=== PATIENT | female | born 1995 | race Caucasian/White ===

== ENCOUNTER 2020-02-02 19:09 | Outpatient (CLI) | payer BC, OTHER ==
[~2020-02-02] VITALS: Ht 162.6 cm; Wt 64.3 kg
[~2020-02-02 19:09] MED LIST: CELE10TA PO; No Home Meds; TRAZ-252 PO
[2020-02-02 19:35] VITALS: BP 108/66
[2020-02-02 20:49] LABS: HEMATOCRIT 30.5 % (36.0-47.0); HEMOGLOBIN 9.6 g/dl (12.0-15.5); MEAN CORPUSCULAR HEMOGLOBIN 26.4 pg (27.0-33.0); MEAN CORPUSCULAR HGB CONC 31.5 g/dl (32.0-36.5); PLATELET COUNT, AUTOMATED 250 10^3/uL (150-450); RED BLOOD COUNT 3.63 10^6/uL (4.00-5.40); WHITE BLOOD COUNT 12.8 10^3/uL (4.0-10.0)
[2020-02-02 21:20] LABS: INR 0.93; PARTIAL THROMBOPLASTIN TIME 28.3 SECONDS (24.2-38.5); PROTHROMBIN TIME 12.7 SECONDS (12.5-14.3)
[2020-02-02] MEDS ORDERED: PRENTAB9 PO (21:46)
[2020-02-02 22:56] VITALS: BP 86/43
--- NOTE | 2020-02-02 23:27 | IPNPDOC ---
Obstetrical Progress Note Date of Service Feb 02, 2020 Subjective 24yo at 35+4wks by LMP c/w 9wk U/S presenting to L&D for evaluation after falling on her hands/knees and stomach after being knocked down by dog at 1730. She reports she also drove up from [place] arriving in just minutes before her fall. She reports feeling her stomach tightening but not painful and she is unsure if they started before or after her fall. She denies having any pain at this time. Endorses good FM. Denies VB or LOF. 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 SVE /-2 Ext: no edema, no calf-tenderness Assessment and Plan Group B Streptococcus: Unknown Additional Comments A/P: 24yo at 35+4wks presenting to L&D after fall. Clinical picture reassuring not placental abruption with negative abruption labs, however, ctx pattern is regular and cannot rule out at this time vs PTL. -BTMZ 12mg IM q24h x2 doses for lung maturity -GBS collected on admission -IV fluids for hydration -Continuous FHR and toco monitoring -Admit to obs for 24hrs -Plan to recheck SVE to evaluate for cervical change as clinically indicated -Will not tocolyze at this time due to recent fall concerning for possible placental abruption. -Regular diet and PO hydration as tolerated -If patient proceeds in PTL, will need to start PCN for GBS ppx due to unk status Patient counseled on recommendation for observation on L&D at this time. She acknowledged understanding and desired to proceed. LEILANI VENEGAS. Feb 02, 2020 23:27
[2020-02-03] VITALS (14 sets, daily range): BP systolic 88–118; BP diastolic 47–58
--- NOTE | 2020-02-03 05:59 | IPNPDOC ---
Obstetrical Progress Note Date of Service Feb 03, 2020 Subjective Patient reports she has been getting some rest but notes she has been intermittently feeling her ctx's. Denies DFM, LOF, or VB. Objective Vital Signs Date Time Temp Pulse Resp B/P (MAP) Pulse Ox O2 Delivery O2 Flow Rate FiO2 02/03/20 00:15 77 18 95/52 (66) 02/02/20 22:56 98.1 Assessment Heart Rate (FHR): 130 Variability: Moderate Accelerations: Positive Decelerations: None Heart Rate Tracing: Category I Tocometer Contractions: Yes Frequency: every 1-3 min. Sterile Vaginal Examination Dilation: 1cm Effacement (%): 70% Station: -2 Cervical Consistency: Soft Cervical Position: Posterior Postion/Presentation: Cephalic presentation Assessment and Plan Status: Reassuring Group B Streptococcus: Unknown Additional Comments Patient has made no cervical change on my serial exams. Patient has intermittently felt ctx's, especially when she need to void, but reports they are minimally painful. FHRT cat I. Reviewed with patient negative abruption labs but counseled due to fall now 12 hours ago do not feel comfortable providing tocolysis at this time although possible etiology of her ctx's is PTL due to the stress of driving 17hours in 2 days from move. Will continue outpatient observation at this time on L&D Regular diet for breakfast Repeat BTMZ dose at 2100 tonight Repeat SVE prior to disposition home Continuous EFM at this time for close monitoring of status Continue to encourage hydration Bedrest with bathroom privileges GBS pending - if patient progresses in cervical dilation will need PCN ppx for GBS unk All questions answered. LEILANI VENEGAS DO Feb 03, 2020 05:59
[2020-02-03 17:13] LABS: HEMATOCRIT 26.1 % (36.0-47.0); HEMOGLOBIN 8.5 g/dl (12.0-15.5); MEAN CORPUSCULAR HEMOGLOBIN 27.5 pg (27.0-33.0); MEAN CORPUSCULAR HGB CONC 32.6 g/dl (32.0-36.5); MEAN CORPUSCULAR VOLUME 84.5 fl (80.0-96.0); PLATELET COUNT, AUTOMATED 237 10^3/uL (150-450); RED BLOOD COUNT 3.09 10^6/uL (4.00-5.40)
== END 2020-02-03 19:40 | disposition home or self-care (01) ==
LOC: M LDO 19:09
DX: O99.891 Other specified diseases and conditions complicating pregnancy (principal); W01.0XXA Fall on same level from slipping, tripping and stumbling without subsequent striking against object, initial encounter; Z3A.35 35 weeks gestation of pregnancy
CPT/HCPCS: 36415; 59025; 81001; 85027; 85384; 85460; 85610; 85730; 86780; 86850; 86900; 86901; 87077; 87081; 96372; G0463; J0702; U0002

== ENCOUNTER 2020-03-10 11:15 | Inpatient (IN) | payer OTHER ==
[~2020-03-10] VITALS: Ht 162.6 cm; Wt 68.4 kg
[~2020-03-10 11:15] MED LIST changes: +PRENTAB9 PO
[2020-03-10 13:27] LABS: HEMATOCRIT 31.2 % (36.0-47.0); HEMOGLOBIN 9.6 g/dl (12.0-15.5); MEAN CORPUSCULAR HEMOGLOBIN 24.2 pg (27.0-33.0); MEAN CORPUSCULAR HGB CONC 30.8 g/dl (32.0-36.5); MEAN CORPUSCULAR VOLUME 78.6 fl (80.0-96.0); PLATELET COUNT, AUTOMATED 292 10^3/uL (150-450); RED BLOOD COUNT 3.97 10^6/uL (4.00-5.40); WHITE BLOOD COUNT 13.5 10^3/uL (4.0-10.0)
--- NOTE | 2020-03-10 15:05 | HPEPDOC ---
Obstetrical History & Physical General Date of Admission Mar 10, 2020 at 11:15 History of Present Illness 24 yo at 40+6 weeks gestation by LMP of [id number] c/w 20+2 week US on [id number] presents to L&D for an IOL for late term . Ms. Hernandez reports feeling well today and has no complaints. She denies any vaginal bleeding, LOF, or pelvic pain. She endorses excellent movement. Chief Complaint: Induction of labor Information Provided By: Patient Age: 24 : 2 Term: 0 Pre-term: 0 Abortions: 1 Livin Care Care: Good Care Dating Final EDC: Mar 04, 2020 Final EDC for Daily Update: Mar 04, 2020 Final EDC by: LMP (LMP of [id number]) Antepartum Course Diagnos(e)s CF Carrier. FOB negative First delivered at 18 weeks (Trisomy 18) via . Low risk cffDNA screening this . Apparent history of suicide attempt in 2013. Past Medical History Past Obstetrical History : Past Obstetrical History: Multigravida ( at 18 weeks (Trisomy 18)) Type of Delivery: Spontaneous Vaginal Del. 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 History: No pertinent history Past Medical History Medical History Apparent history of suicide attempt in 2013 Surgical History: [place] teeth Family History Significant Family History: No pertinent family hx Social History Marital Status: Family situation: Spouse/partner home Psychosocial History: Depression, Prior suicide attempt * Smoker: non-smoker Alcohol: Denies Drugs: denies Imunizations Tdap status: current Influenza Status: current Allergies Coded Allergies: No Known Allergies (Unverified , 03/15/14) Medications Scheduled No.137/Iron/Folic Acd ( Vitamin Tablet) 1 Each Tablet, 1 TAB PO DAILY Physical Examination Physical Examination Chaperoned by L&D RN GENERAL: Alert and oriented times three. ABDOMEN: Gravid and non-tender to touch. FETUS: Is vertex (VTX) by sterile vaginal examination (SVE) and jennifer EXTREMITIES: No edema. Hatch bulb placed with 60ml saline intrauterine. Laboratory Data 24H LABS Laboratory Tests 2 03/10/20 11:30: Serology Scanned Report Hepatitis B Testing 03/10/20 13:11: Nucleated Red Blood Cells % (auto) 0.0, Syphilis Serology NONREACTIVE CBC/BMP Laboratory Tests 03/10/20 13:11 Urine Culture: No Growth Pertinent Laboratoy Data Blood Type: O+ RBC Antibody Screen: Negative HIV: Negative Hepatitis B: Negative Hepatitis C: Unknown Rapid Plasma Reagin: Nonreactive Rubella: Immune Varicella: Immune Chlamydia/Gonorrhea: Negative Group B Streptococcus: Negative Quad Screen Test: Unknown (Patient had low risk cff DNA genetic screening) Cystic Fibrosis: Positive (Patient carrier. FOB negative) Glucose Tolerance Test: 126 Anatomy Ultrasound Placenta Location: Anterior Normal Anatomy: Yes Placenta Previa: No Steroid Therapy Steroid Therapy: No Vaginal Examination Dilation: 2cm Effacement: 70% Station: -3 Cervical Consistency: Medium Cervical Position: Posterior Presentation: Cephalic presentation Position: Four quadrants, Vertex (occiput) Assessment Heart Rate (FHR): 130 Variability: Moderate Accelerations: Positive Decelerations: None Tocometer Contractions: Yes Frequency: irregular Assessment/Plan Assessment 24 yo at 40+6 weeks here today for IOL for late term . No issues. Plan Admit for IOL. Apply IV fluids. GBS negative. Hatch bulb placed with 60ml saline intrauterine to start IOL. Will likely add low dose pitocin if contraction pattern permits. Pain meds as desired in latent labor. Epidural if desired when in active labor. All patient questions answered. Sixto Dang, DO Labor and Delivery Counseling Vaginal / Operative vaginal delivery counseling Deliver your baby through the vagina with possible assistance of forceps or vacuum device if needed for maternal or indications. Forceps and vacuum are devices that can assist with vaginal delivery when normal pushing efforts cannot achieve delivery on their own or when delivery is needed in an emergency for baby's well-being. Medications may be required to induce or augment (help) your labor in order to achieve a vaginal delivery. An episiotomy may be required to help your baby to delivery vaginally. You may also require repair of any lacerations or tears of your vagina or vulva that are caused by delivery. In some cases, emergencies can occur that require an emergency section delivery so quickly that there may not be enough time to stop and complete consent forms for section. Understand that if this occurs, your providers will discuss the need for a section with you before they proceed with surgery. section is the delivery of your baby through an incision in your abdomen. In some situations, section may be safer to mom and baby than continuing labor and is only performed when clinically indicated. Risks of vaginal delivery include but are not limited to: Bleeding, infection, injury to the vagina, pelvic structures, injury to baby, damage to the uterus, reactions to anesthesia, uterine rupture, risk of hysterectomy for life threatening bleeding, or . Medications used to induce or augment labor may increase your risk for infection, uterine tachysystole, uterine rupture, heart rate abnormalities, need for emergency delivery or possible hysterectomy, and hemorrhage. Additional risks for use of forceps and vacuum include: increased risk of perineal and vaginal lacerations, risk of urinary or bowel incontinence, increased risk of injury to baby with bruising, scratches, hematomas on the head, or intracranial bleeding. Ms. Hernandez appears to understand these risks and elects to proceed. She also consents to a blood transfusion if necessary. DO KSENIA Varela CHRISTOPHER J. DO Mar 10, 2020 15:05
[2020-03-10] MEDS: LR 1,000 ML IV SCH ×2 (16:10→21:19)
[2020-03-10] MEDS ORDERED: BUTORPHANOL 2 MG/ML INJ (J0595) IV ONE (16:45)
--- NOTE | 2020-03-10 19:51 | IPNPDOC ---
Text Note Date of Service The patient was seen on 03/10/20. NOTE Hatch bulb still in place. Contractions Q 2 minutes and strong. 2mg Stadol administered for pain relief. FHR Cat I with moderate variability, no accels, no decels. Lack of accels likely secondary to Stadol dose. Low dose pitocin protocol until bulb is expelled, then up to full dose. DO Alton VSJoshua, I+O VS, Joshua, I+O Laboratory Tests 03/10/20 13:11 Vital Signs Date Time Temp Pulse Resp B/P (MAP) Pulse Ox O2 Delivery O2 Flow Rate FiO2 03/10/20 17:14 18 CLINT MCCORMACK DO Mar 10, 2020 19:51
[2020-03-11] VITALS (54 sets, daily range): BP systolic 89–135; BP diastolic 50–80
[2020-03-11] MEDS ORDERED: LR 1,000 ML IV SCH (01:23)
--- NOTE | 2020-03-11 01:23 | IPNPDOC ---
Text Note Date of Service The patient was seen on 03/11/20. NOTE Hacth bulb out. Cervix 4/80/-2. Bulging bag of water. FHR with moderate variability, +accels. Questionable single late decel. But overall reassuring tracing. Plan for pitocin protocol as contraction pattern allows. Patient may have epidural if and when desired. Patient agrees to proceed. All questions answered. DO Alton VS,Joshua, I+O VS, Joshua, I+O Laboratory Tests 03/10/20 13:11 Vital Signs Date Time Temp Pulse Resp B/P (MAP) Pulse Ox O2 Delivery O2 Flow Rate FiO2 03/10/20 17:14 18 CLINT MCCORMACK DO Mar 11, 2020 01:23
[2020-03-11] MEDS ORDERED: OXYTOCIN DRIP 30 UNITS in IV 1 EA IV SCH ×2 (01:30→13:58)
[2020-03-11] MEDS ORDERED: FENTANYL 2MCG/ML ROPIVACAINE 0.2% IN 0.9% NACL 100ML IVBAG As Ordered ONE (04:15)
[2020-03-11] MEDS ORDERED: diphenhydrAMINE 50MG/ML VIAL (J1200) IV PRN (05:10)
[2020-03-11] MEDS ORDERED: NALOXONE INJ 0.4MG/1ML VIAL (J2310 PER 1MG) IV PRN (05:10)
[2020-03-11] MEDS ORDERED: REFRIGERATOR IV KEYS XX PRN (05:10)
[2020-03-11] MEDS ORDERED: EPIDURAL COMMENT XX SCH (05:10)
[2020-03-11] MEDS ORDERED: ePHEDrine SULFATE 25 MG/5 ML(5MG/ML) SYRINGE IV PRN (05:10)
[2020-03-11] MEDS ORDERED: EPIDURAL/PCA KEYS XX PRN (05:10)
[2020-03-11] MEDS ORDERED: LACTATED RINGER'S 1000 ML IV PRN (05:10)
[2020-03-11] MEDS ORDERED: ONDANSETRON 4MG/2ML VIAL IV PRN (05:10)
[2020-03-11] MEDS: FENTANYL/ROPIVACAINE/NACL BAG 100 ML EPIDURAL SCH ×3 (05:10→19:07)
[2020-03-11] MEDS: LR 1,000 ML IV SCH ×2 (05:36→10:41)
--- NOTE | 2020-03-11 08:54 | IPNPDOC ---
Obstetrical Progress Note Date of Service Mar 11, 2020 Subjective Fior endorses having cramping back pain. Objective Vital Signs Date Time Temp Pulse Resp B/P (MAP) Pulse Ox O2 Delivery O2 Flow Rate FiO2 03/11/20 06:12 75 118/62 (80) 03/11/20 05:57 18 03/11/20 04:05 98.9 Assessment Heart Rate Tracing: Category I Tocometer Contractions: Yes Frequency: every 2-5 min. Sterile Vaginal Examination Dilation: 8 cm Effacement (%): 100% Station: +1 Cervical Consistency: Soft Cervical Position: Anterior Postion/Presentation: Cephalic presentation Assessment and Plan Status: Reassuring Group B Streptococcus: Negative Anticipate: Vaginal Delivery Additional Comments Patient has progressed on pitocin protocol to now 8/c/+1. AROM offered and patient amenable that was performed notable for clear fluid. Back pain resolved after AROM. FHRT cat I. Plan to continue pitocin protocol for expectant . LEILANI VENEGAS DO Mar 11, 2020 08:53
--- NOTE | 2020-03-11 12:35 | IPNPDOC ---
Obstetrical Progress Note Date of Service Mar 11, 2020 Subjective Patient endorses right-sided rib pain Objective Vital Signs Date Time Temp Pulse Resp B/P (MAP) Pulse Ox O2 Delivery O2 Flow Rate FiO2 03/11/20 09:47 98.0 75 20 134/60 (84) Assessment Heart Rate Tracing: Category I Tocometer Contractions: Yes Frequency: every 2-2 min. Sterile Vaginal Examination Dilation: complete Effacement (%): 100% Station: +1 Cervical Consistency: Soft Cervical Position: Anterior Postion/Presentation: Cephalic presentation Assessment and Plan Status: Reassuring Group B Streptococcus: Negative Additional Comments Patient has now been pushing for 1hr with RN after 1 hour of attempting passive descent. Patient is pushing well but has had no descent past +1 station with development of caput. Patient counseled on my concern for CPD with need for section. and maternal status reassuring. Patient requests additional time to keep pushing, will allow for 1 hour. If no descent will recommend section. LEILANI VENEGAS DO Mar 11, 2020 12:35
[2020-03-11] MEDS ORDERED: ACETAMINOPHEN TAB 650MG DOSE (2X325MG) PO PRN (14:00)
[2020-03-11] MEDS ORDERED: BENZOCAINE 20% HEMORRHOIDAL OINTMENT 28GM TUBE TOP PRN (14:00)
[2020-03-11] MEDS ORDERED: ANUSOL HC CREAM 30GM TOP PRN (14:00)
[2020-03-11] MEDS ORDERED: IBUPROFEN 800 MG TAB PO PRN (14:00)
[2020-03-11] MEDS ORDERED: ACETAMINOPHEN 500 MG TAB PO PRN (14:00)
[2020-03-11] MEDS ORDERED: IBUPROFEN 600MG TAB PO PRN (14:00)
--- NOTE | 2020-03-11 14:12 | DNPDOC ---
[facility] Delivery Note Delivery Note DATE OF DELIVERY: 03/11/2020 PREDELIVERY DIAGNOSIS: 41+1/7 weeks' gestation and labor. POST DELIVERY DIAGNOSIS: Delivered. PROCEDURE: Spontaneous vaginal delivery SITE INSPECTOR: Dr. Leilani Venegas ANESTHESIA: Epidural ESTIMATED BLOOD LOSS: 200mL. FINDINGS: 9 pound 6 ounce 4240g male infant, Score 9/9, no nuchal cord. Terminal meconium. DELIVERY SUMMARY: Patient had been repositioned multiple times and with good maternal pushing effort had reached +3 station. Patient requested assistance for maternal exhaustion. Hatch catheter had been spontaneously expelled immediately before my evaluation with balloon intact. Examination of urethra did not have any lacerations or bleeding visible. position OA. Patient counseled and verbally consented for operative vaginal delivery with a vacuum delivery and desired to proceed. The kiwi vacuum was applied over the flexion point with suction increased to 60mmHg and with excellent maternal effort over 2 sets of pushes, spontaneous delivery of head. The suction was released and the vacuum was removed upon delivery of the head. head did not restitute spontaneously and upon examination, shoulders found to be axial. Therefo re, Celeste's manuever performed to rotate shoulders into AP plane for spontaneous delivery of right anterior shoulder. Anterior shoulder and body delivered without difficulty. No nuchal cord. Terminal meconium appreciated. with spontaneous cry on delivery field therefore placed on maternal abdomen with care transferred to Team. Pitocin IV bolus initiated. After 8 minutes of delayed cord clamping, three vessel cord clamped x2 and cut FOB. Cord blood sample obtained. Third stage spontaneous with intact placenta. Fundal palpation revealed boggy tone that was massaged to firm and vaginal sweep removed several clots. Hemostasis was achieved. Inspection revealed 2nd degree perineal laceration. Epidural not effective enough for repair therefore 10ml of 1% lidocaine plain used for local anesthesia. EAS was visible and intact, however, reinforcing suture with 0-vicryl placed. The remainder of the 2nd degree perineal laceration was repaired in routine fashion with good approximation of tissue and hemostasis achieved. Fundal massage revealed firm uterine tone. EBL 200ml. Mother stable upon my leaving the room. taken to NICU per hospital policy due to vacuum-assistance. LEILANI VENEGAS DO Mar 11, 2020 14:12
[2020-03-11] MEDS: DOCUSATE SODIUM 100 MG CAP PO SCH (20:30)
[2020-03-11] MEDS ORDERED: LIDOCAINE 1% MDV 20ML VIAL As Ordered ONE (21:26)
[2020-03-12 06:00] VITALS: BP 100/57
[2020-03-12] MEDS: LR 1,000 ML IV SCH (06:34)
[2020-03-12] MEDS: DOCUSATE SODIUM 100 MG CAP PO SCH ×2 (08:11→19:46)
[2020-03-12] MEDS: PRENATAL VITAMINS CHEWABLE TABLET PO SCH (08:11)
--- NOTE | 2020-03-12 08:35 | IPNPDOC ---
Progress Note Date of Service: Mar 12, 2020 Day#: 1 Progress Note SUBJECT: Fior is a 24-year-old 2 now Para 1 status post vacuum assi sted vaginal delivery at 41-1/7 weeks'. She has been ambulating, voiding spontaneously without issue and tolerating regular diet. Breast feeding with tenderness. Patient reports Lochia is small. Patient is ambulating well. Reports some cramping with . OBJECTIVE: VITAL SIGNS: Within normal limits, afebrile. Alert and oriented times three. Breath sounds clear to auscultation. Heart rate: Regular rate and rhythm, no murmurs, rubs or gallops. Nipples are intact and breast tissue is soft, non tender. Abdomen: Fundus firm at U-1. Soft, NTTP. Minimal lochia. ASSESSMENT: Fior is a 24-year-old 2 now Para 1 status post vacuum assisted vaginal delivery, doing well on day 1. Vitals within normal limits, afebrile, hemodynamically stable with no evidence of infection. PLAN: 1. Discharge to home day 2 . 2. Tylenol and Motrin for pain. 3. Encourage breast feeding and ambulation. VS, I&O, 24H, Fishbone Vital Signs/I&O Vital Signs Date Time Temp Pulse Resp B/P (MAP) Pulse Ox O2 Delivery O2 Flow Rate FiO2 03/12/20 06:00 98.6 70 16 100/57 (71) 03/11/20 16:30 97 Room Air I&O- Last 24 Hours up to 6 AM 03/12/20 06:00 Intake Total 1225 ml Output Total 1400 ml Balance -175 ml VEGA SANTIAGO CNM Mar 12, 2020 08:35
[2020-03-12] MEDS ORDERED: INFLUENZA QUADRIVALENT PF VACCINE 0.5ML SYRINGE IM ONE (09:00)
[2020-03-12 18:00] VITALS: BP 112/57
[2020-03-12 19:31] LABS: HEMOGLOBIN 7.7 g/dl (12.0-15.5); MEAN CORPUSCULAR HEMOGLOBIN 23.5 pg (27.0-33.0); MEAN CORPUSCULAR HGB CONC 29.6 g/dl (32.0-36.5); MEAN CORPUSCULAR VOLUME 79.3 fl (80.0-96.0); PLATELET COUNT, AUTOMATED 264 10^3/uL (150-450); RED BLOOD COUNT 3.28 10^6/uL (4.00-5.40); WHITE BLOOD COUNT 18.3 10^3/uL (4.0-10.0)
[2020-03-13 06:26] VITALS: BP 104/57
[2020-03-13] MEDS: PRENATAL VITAMINS CHEWABLE TABLET PO SCH (07:29)
[2020-03-13] MEDS: DOCUSATE SODIUM 100 MG CAP PO SCH (07:29)
--- NOTE | 2020-03-13 08:41 | IPNPDOC ---
Progress Note Date of Service: Mar 13, 2020 Day#: 2 Progress Note SUBJECT: Fior is a 24yo s/p VAVD for maternal exhaustion over 2nd degree perineal laceration doing well day # 1. She has been ambulating, voiding spontaneously without issue and tolerating regular diet. Breast feeding without issue. Reports lochia is decreasing. She had some periods of dizziness yesterday when ambulating to bathroom so a CBC was obtained demonstrating mild anemia but it was also noted to not be resting, eating or drinking enough and when this support was encouraged, her dizziness improved. OBJECTIVE: VITAL SIGNS: Within normal limits, afebrile. Alert and oriented times three. Abdomen: Fundus firm at U-2. Soft, NTTP. : scant lochia, mild edema, laceration well-approximated ASSESSMENT: Fior is a 24yo s/p VAVD for maternal exhaustion over 2nd degree perineal laceration doing well day # 1. Vitals within normal limits, afebrile, hemodynamically stable with no evidence of infection. PLAN: 1. Discharge to home today. 2. Tylenol and Motrin for pain. 3. Encourage breast feeding and ambulation. 4. Encourage regular diet and PO hydration 5. Routine PP visit in 6 weeks in clinic. 6. Discussed return precautions at length. VS, I&O, 24H, Fishbone Vital Signs/I&O Vital Signs Date Time Temp Pulse Resp B/P (MAP) Pulse Ox O2 Delivery O2 Flow Rate FiO2 03/13/20 06:26 97.6 73 17 104/57 (73) 03/12/20 18:00 100 Room Air Laboratory Data 24H LABS Laboratory Tests 2 03/12/20 19:17: Nucleated Red Blood Cells % (auto) 0.0 CBC/BMP Laboratory Tests 03/12/20 19:17 LEILANI VENEGAS DO Mar 13, 2020 08:41
== END 2020-03-13 12:05 | disposition home or self-care (01) | DRG 807 ==
LOC: M LDI 11:15 → M OBS 03-11 16:20
PROVIDERS: ADMIT Registered Nurse Maternal Newborn; ATTEND Obstetrics & Gynecology
PROC: 3E033VJ Introduction of Other Hormone into Peripheral Vein, Percutaneous Approach (ICD-10-PCS; 2020-03-10)
PROC: 10D07Z6 Extraction of Products of Conception, Vacuum, Via Natural or Artificial Opening (ICD-10-PCS; principal; 2020-03-11)
PROC: 0KQM0ZZ Repair Perineum Muscle, Open Approach (ICD-10-PCS; 2020-03-11)
PROC: 10907ZC Drainage of Amniotic Fluid, Therapeutic from Products of Conception, Via Natural or Artificial Opening (ICD-10-PCS; 2020-03-11)
DX: O48.0 Post-term pregnancy (principal); Z37.0 Single live birth; Z3A.40 40 weeks gestation of pregnancy; O70.1 Second degree perineal laceration during delivery; O75.81 Maternal exhaustion complicating labor and delivery

== ENCOUNTER → 2021-09-07 | Outpatient (CLI) | payer OTHER | LOC: M RAD 11:46 | PROVIDERS: ATTEND Registered Nurse | DX: O26.852 Spotting complicating pregnancy, second trimester (principal); O32.1XX0 Maternal care for breech presentation, not applicable or unspecified; Z3A.22 22 weeks gestation of pregnancy ==

== ENCOUNTER 2021-12-21 11:23 | Outpatient (CLI) | payer OTHER ==
[~2021-12-21] VITALS: Ht 162.6 cm; Wt 68.2 kg
[~2021-12-21 11:23] MED LIST changes: +ALBUTEROL SULFATE 2.5 MG/0.5 ML INH NEB SOLN INH PRN; +EPINEPHrine INJ 1 MG/ML 1ML AMP IM PRN; +IRON SUCROSE 200 MG in NS 100 ML OVER 1 HR IV ONE; +NS 1,000 ML IV SCH; +diphenhydrAMINE 50MG/ML VIAL (J1200) IV PRN; +methylPREDNISolone 125MG 2ML VIAL IV PRN
[2021-12-21 11:25] VITALS: BP 106/65
[2021-12-21 12:15] VITALS: BP 109/61
[2021-12-21 12:58] VITALS: BP 96/55
== END 2021-12-21 13:00 | disposition home or self-care (01) ==
LOC: M INFU 11:23
PROVIDERS: ATTEND Advanced Practice Midwife
DX: D50.9 Iron deficiency anemia, unspecified (principal)
CPT/HCPCS: 96365; J1756

== ENCOUNTER 2021-12-23 10:45 | Outpatient (CLI) | payer OTHER ==
[~2021-12-23 10:45] MED LIST changes: -IRON SUCROSE 200 MG in NS 100 ML OVER 1 HR IV ONE; -NS 1,000 ML IV SCH
[2021-12-23 10:55] VITALS: BP 118/55
[2021-12-23] MEDS ORDERED: IRON SUCROSE 200 MG in NS 100 ML OVER 1 HR IV ONE (11:00)
[2021-12-23 12:52] VITALS: BP 102/54
== END 2021-12-23 13:00 | disposition home or self-care (01) ==
LOC: M INFU 10:45
PROVIDERS: ATTEND Advanced Practice Midwife
DX: D50.9 Iron deficiency anemia, unspecified (principal)

== ENCOUNTER 2021-12-26 11:00 | Outpatient (CLI) | payer OTHER ==
[~2021-12-26 11:00] MED LIST changes: +IRON SUCROSE 200 MG in NS 100 ML OVER 1 HR IV ONE; +NS 1,000 ML IV SCH
[2021-12-26 11:05] VITALS: BP 114/58
[2021-12-26 12:30] VITALS: BP 119/56
== END 2021-12-26 12:30 | disposition home or self-care (01) ==
LOC: M INFU 11:00
PROVIDERS: ATTEND Advanced Practice Midwife
DX: D50.9 Iron deficiency anemia, unspecified (principal)
CPT/HCPCS: 96365; J1756

== ENCOUNTER 2021-12-28 11:00 | Outpatient (CLI) | payer OTHER ==
[~2021-12-28] VITALS: Ht 157.5 cm; Wt 67.3 kg
[2021-12-28 10:55] VITALS: BP 109/57
[2021-12-28 12:15] VITALS: BP 106/60
== END 2021-12-28 12:15 | disposition home or self-care (01) ==
LOC: M INFU 11:00
PROVIDERS: ATTEND Advanced Practice Midwife
DX: D50.9 Iron deficiency anemia, unspecified (principal)
CPT/HCPCS: 96365; J1756

== ENCOUNTER 2022-01-06 07:36 | Inpatient (IN) | payer OTHER ==
[2022-01-06] VITALS (26 sets, daily range): BP systolic 97–124; BP diastolic 49–83
[~2022-01-06] VITALS: Ht 162.6 cm; Wt 67.9 kg
[~2022-01-06 07:36] MED LIST changes: -ALBUTEROL SULFATE 2.5 MG/0.5 ML INH NEB SOLN INH PRN; -EPINEPHrine INJ 1 MG/ML 1ML AMP IM PRN; -IRON SUCROSE 200 MG in NS 100 ML OVER 1 HR IV ONE; -NS 1,000 ML IV SCH; -diphenhydrAMINE 50MG/ML VIAL (J1200) IV PRN; -methylPREDNISolone 125MG 2ML VIAL IV PRN
[2022-01-06] MEDS ORDERED: IRON27TA2 PO (07:58)
[2022-01-06] MEDS ORDERED: VITA100T59 PO (07:58)
[2022-01-06] MEDS ORDERED: HOME MED LIST COMPLETE! XX SCH (08:00)
[2022-01-06] MEDS ORDERED: CARBOPROST TROMETHAMINE 250 MCG/ML AMP IM PRN (08:20)
[2022-01-06] MEDS ORDERED: METHYLERGONOVINE MALEATE 0.2 MG/ML VIAL (J2210) IM PRN (08:20)
[2022-01-06] MEDS ORDERED: TRANEXAMIC ACID INJection 1,000 MG in NS 100 ML IV PRN (08:20)
[2022-01-06] MEDS ORDERED: LIDOCAINE 1% MDV 20ML VIAL INFIL PRN (08:20)
[2022-01-06] MEDS ORDERED: OXYTOCIN DRIP 30 UNITS in IV 1 EA IV PRN ×6 (08:20)
[2022-01-06] MEDS ORDERED: miSOPROStol 50MCG 1/2 TABLET PO ONE (08:20)
[2022-01-06] MEDS ORDERED: miSOPROStol 25MCG 1/4 TABLET PV PRN (08:20)
[2022-01-06] MEDS ORDERED: LACTATED RINGER'S 1000 ML IV STA (09:16)
[2022-01-06] MEDS ORDERED: LR 1,000 ML IV SCH (09:20)
[2022-01-06 09:34] LABS: HEMOGLOBIN 10.8 g/dl (12.0-15.5); MEAN CORPUSCULAR HEMOGLOBIN 26.9 pg (27.0-33.0); MEAN CORPUSCULAR HGB CONC 31.8 g/dl (32.0-36.5); MEAN CORPUSCULAR VOLUME 84.6 fl (80.0-96.0); PLATELET COUNT, AUTOMATED 148 10^3/uL (150-450); RED BLOOD COUNT 4.02 10^6/uL (4.00-5.40); WHITE BLOOD COUNT 10.4 10^3/uL (4.0-10.0)
[2022-01-06] MEDS ORDERED: OXYTOCIN DRIP 30 UNITS in IV 1 EA IV SCH (19:40)
[2022-01-06] MEDS: LR 1,000 ML IV SCH (19:40)
[2022-01-06] MEDS ORDERED: EPIDURAL/PCA KEYS XX PRN (20:30)
[2022-01-06] MEDS ORDERED: NALOXONE INJ 0.4MG/1ML VIAL (J2310 PER 1MG) IV PRN (20:30)
[2022-01-06] MEDS ORDERED: diphenhydrAMINE 50MG/ML VIAL (J1200) IV PRN (20:30)
[2022-01-06] MEDS ORDERED: ePHEDrine SULFATE 25 MG/5 ML(5MG/ML) SYRINGE IVP PRN (20:30)
[2022-01-06] MEDS ORDERED: LR 500 ML IV PRN (20:30)
[2022-01-06] MEDS ORDERED: ONDANSETRON 4MG 2ML VIAL IV PRN (20:30)
[2022-01-06] MEDS ORDERED: FENTANYL/ROPIVACAINE/NACL BAG 100 ML EPIDURAL SCH ×2 (20:30)
[2022-01-07] VITALS (22 sets, daily range): BP systolic 104–148; BP diastolic 53–80
[2022-01-07] MEDS ORDERED: ACETAMINOPHEN TAB 650MG DOSE (2X325MG) PO PRN (03:35)
[2022-01-07] MEDS ORDERED: ANUSOL HC CREAM 30GM TOP PRN (03:35)
[2022-01-07] MEDS ORDERED: METHYLERGONOVINE MALEATE 0.2 MG TAB PO PRN (03:35)
[2022-01-07] MEDS ORDERED: OXYTOCIN DRIP 30 UNITS in IV 1 EA IV SCH (03:35)
[2022-01-07] MEDS ORDERED: RHOGAM 300 MCG (1500 IU) INJ (J2790) IM SCH (03:35)
[2022-01-07] MEDS ORDERED: IBUPROFEN 600MG TAB PO PRN (03:35)
[2022-01-07] MEDS ORDERED: DIBUCAINE 1% OINTMENT 30GM TOP PRN (03:35)
[2022-01-07] MEDS: LR 1,000 ML IV SCH ×3 (03:40→19:40)
[2022-01-07] MEDS: IBUPROFEN 800 MG TAB PO PRN (05:49)
[2022-01-07] MEDS: ACETAMINOPHEN 500 MG TAB PO PRN ×2 (05:49→18:43)
[2022-01-07] MEDS: METHYLERGONOVINE MALEATE 0.2 MG TAB PO SCH ×4 (08:34→20:03)
[2022-01-07] MEDS: PRENATAL VITAMINS CHEWABLE TABLET PO SCH (08:37)
[2022-01-07] MEDS: DOCUSATE SODIUM 100MG CAPSULE PO SCH ×2 (08:37→21:19)
[2022-01-07] MEDS ORDERED: SIMETHICONE 80MG CHEW TAB PO PRN (18:15)
[2022-01-07] MEDS ORDERED: CEPACOL LOZENGE PO PRN (19:00)
[2022-01-07 19:22] LABS: RSV AMPLIFICATION NEGATIVE (NEGATIVE)
[2022-01-07 19:25] LABS: BASO % 0.2 % (0.0-1.0); EOS % 0.1 % (0.0-3.0); HEMATOCRIT 36.4 % (36.0-47.0); HEMOGLOBIN 11.8 g/dl (12.0-15.5); LYMPH % 11.5 % (24.0-44.0); MEAN CORPUSCULAR HEMOGLOBIN 27.4 pg (27.0-33.0); MEAN CORPUSCULAR HGB CONC 32.4 g/dl (32.0-36.5); MEAN CORPUSCULAR VOLUME 84.7 fl (80.0-96.0); MONO % 10.5 % (2.0-8.0); NEUTROPHILS % 77.2 % (36.0-66.0); PLATELET COUNT, AUTOMATED 160 10^3/uL (150-450); WHITE BLOOD COUNT 14.7 10^3/uL (4.0-10.0)
[2022-01-07 19:26] LABS: LYMPH # 1.7 10^3/uL (1.5-5.0); MONO # 1.5 10^3/uL (0.0-0.8); NEUTROPHILS # 11.3 10^3/uL (1.5-8.5)
[2022-01-07] MEDS ORDERED: AMPICILLIN SOD 2 GM in D5W MINI-BAG PLUS 100 ML IV SCH (20:00)
[2022-01-07] MEDS ORDERED: GENTAMICIN 300 MG in D5W 50 ML IV SCH (20:00)
[2022-01-07] MEDS: AMPICILLIN SOD 2 GM in D5W MINI-BAG PLUS 100 ML IV SCH (20:42)
[2022-01-08] MEDS: METHYLERGONOVINE MALEATE 0.2 MG TAB PO SCH ×2 (00:29→04:44)
[2022-01-08] MEDS: AMPICILLIN SOD 2 GM in D5W MINI-BAG PLUS 100 ML IV SCH ×4 (03:37→21:16)
[2022-01-08 06:00] VITALS: BP 93/52
[2022-01-08 07:56] LABS: HEMATOCRIT 39.7 % (36.0-47.0); HEMOGLOBIN 12.2 g/dl (12.0-15.5); MEAN CORPUSCULAR HEMOGLOBIN 26.6 pg (27.0-33.0); MEAN CORPUSCULAR HGB CONC 30.7 g/dl (32.0-36.5); MEAN CORPUSCULAR VOLUME 86.5 fl (80.0-96.0); PLATELET COUNT, AUTOMATED 150 10^3/uL (150-450); RED BLOOD COUNT 4.59 10^6/uL (4.00-5.40)
[2022-01-08] MEDS: PRENATAL VITAMINS CHEWABLE TABLET PO SCH (09:57)
[2022-01-08] MEDS: DOCUSATE SODIUM 100MG CAPSULE PO SCH ×2 (09:57→21:16)
[2022-01-08] MEDS: IBUPROFEN 800 MG TAB PO PRN (17:18)
[2022-01-08 18:00] VITALS: BP 100/55
[2022-01-09] MEDS ORDERED: IBUP80TA PO (04:21)
[2022-01-09] MEDS ORDERED: ACET-683 PO (04:21)
[2022-01-09 06:00] VITALS: BP 92/54
[2022-01-09] MEDS: PRENATAL VITAMINS CHEWABLE TABLET PO SCH (07:27)
[2022-01-09] MEDS: DOCUSATE SODIUM 100MG CAPSULE PO SCH (07:27)
[2022-01-09] MEDS ORDERED: MEASLES,MUMPS,RUBELLA VACCINE INJ (MMR-II) (90707) SC.IMMUN ONE (09:00)
[2022-01-09] MEDS ORDERED: INFLUENZA QUADRIVALENT PF VACCINE 0.5ML SYRINGE IM.IMMUN ONE (12:30)
== END 2022-01-09 13:26 | disposition home or self-care (01) | DRG 806 ==
LOC: M LDI 07:36 → M OBS 01-07 09:16
PROVIDERS: ADMIT Obstetrics & Gynecology; ATTEND Obstetrics & Gynecology
PROC: 3E0P7GC Introduction of Other Therapeutic Substance into Female Reproductive, Via Natural or Artificial Opening (ICD-10-PCS; 2022-01-06)
PROC: 10E0XZZ Delivery of Products of Conception, External Approach (ICD-10-PCS; principal; 2022-01-07)
PROC: 0KQM0ZZ Repair Perineum Muscle, Open Approach (ICD-10-PCS; 2022-01-07)
PROC: 10907ZC Drainage of Amniotic Fluid, Therapeutic from Products of Conception, Via Natural or Artificial Opening (ICD-10-PCS; 2022-01-07)
DX: O69.81X0 Labor and delivery complicated by cord around neck, without compression, not applicable or unspecified (principal); Z37.0 Single live birth; O86.12 Endometritis following delivery; Z3A.39 39 weeks gestation of pregnancy; O70.1 Second degree perineal laceration during delivery

== ENCOUNTER → 2024-03-02 | Outpatient (REF) | payer OTHER ==
[~2024-03-02] MED LIST changes: +ACET-683 PO; +IBUP80TA PO; +IRON27TA2 PO; +VITA100T59 PO
== END ==
LOC: M LAB REF 18:32
PROVIDERS: ATTEND Student in an Organized Health Care Education/Training Program
DX: R30.0 Dysuria (principal)